=== PATIENT | male | born 1975 | race Caucasian/White ===

== ENCOUNTER 2018-11-05 12:43 | Emergency (ER) | payer SELFPAY ==
[2018-11-05 12:59] VITALS: BP 157/92
[2018-11-05] MEDS ORDERED: TORADOL IM ONE (14:15)
--- NOTE | 2018-11-05 14:18 | Emergency Department Report ---
ED General Adult HPI - General Chief complaint: Extremity Injury, Lower Stated complaint: KNEE PAIN/DIABETIC/HYPERTENSION Time Seen by Provider: 11/05/18 14:07 Source: patient Mode of arrival: Ambulatory Limitations: No Limitations - History of Present Illness Initial comments: Patient is 43 years old male with history of hypertension and diabetes. Patient is noncompliant with his medication due to insurance issues per patient report. Patient presented today complaining of bilateral knee pain. He stated that he is doing a lot of going up a stair and down at his work. Patient denied any fever, chills, nausea or vomiting. No chest pain or shortness of breath. No headache, neck pain, weakness numbness or tingling sensation. - Related Data Allergies Allergy/AdvReac Type Severity Reaction Status Date / Time No Known Allergies Allergy Unverified 11/05/18 12:51 ED Review of Systems ROS: Stated complaint: KNEE PAIN/DIABETIC/HYPERTENSION Other details as noted in HPI Comment: All other systems reviewed and negative Constitutional: denies: chills, fever Respiratory: denies: cough, orthopnea, shortness of breath, SOB with exertion, SOB at rest, wheezing Cardiovascular: denies: chest pain, palpitations Gastrointestinal: denies: abdominal pain, nausea, vomiting, diarrhea, constipation, hematemesis, melena, hematochezia Musculoskeletal: arthralgia. 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 Absent: tenderness, meningismus, lymphadenopathy, thyromegaly - Respiratory Respiratory exam: Present: normal lung sounds bilaterally - Cardiovascular Cardiovascular Exam: Present: regular rate, normal rhythm, normal heart sounds - GI/Abdominal GI/Abdominal exam: Present: soft, normal bowel sounds. Absent: distended, tenderness, guarding, rebound, rigid, organomegaly, mass, bruit, pulsatile mass, hernia - Extremities Exam Extremities exam: Present: normal inspection, full ROM, normal capillary refill. Absent: pedal edema, calf tenderness - Back Exam Back exam: Present: normal inspection, full ROM. Absent: tenderness, CVA tenderness (R), CVA tenderness (L), muscle spasm, paraspinal tenderness, vertebral tenderness - Neurological Exam Neurological exam: Present: alert, oriented X3, CN II-XII intact, normal gait, reflexes normal - Skin Skin exam: Present: warm, intact, normal color ED Course Vital Signs 11/05/18 11/05/18 11/05/18 12:51 14:15 14:23 Temperature 98.5 F Pulse Rate 61 Respiratory 16 16 16 Rate Blood Pressure 157/92 O2 Sat by Pulse 97 Oximetry ED Medical Decision Making - Lab Data Result diagrams: 11/05/18 14:31 11/05/18 14:31 - Radiology Data Radiology results: report reviewed Referring Physician: JUAREZ BENSON Patient Name: MARTHA ROMERO Date of : 1975 Sex: Male Report Date: 2018-11-05 Report Status: [place] [address] XRay Report Signed Patient: MARTHA ROMERO MR#: [id number] : 1975 Acct:[id number] Age/Sex: 43 / M ADM Date: 11/05/18 Loc: ED Attending Dr: Ordering Physician: JUAREZ BENSON Date of Service: 11/05/18 Procedure(s): XR knee BILAT 3V Accession Number(s): [id number] cc: JUAREZ BENOSN Fluoro Time In Minutes: BILATERAL KNEE RADIOGRAPHS INDICATION: Knee pain and injury. COMPARISON: None similar at this institution. FINDINGS: AP, lateral and oblique bilateral knee radiographs demonstrate intact articulation. Mild medial compartment narrowing suspected bilaterally. Degenerative spurring also involves the medial corners, tibial spines as also the superior and inferior patellar poles. No suprapatellar effusion. CONCLUSION: No acute radiographic abnormality with bilateral knee osteoarthritic changes noted, as described. Thank you for the opportunity to participate in this patient's care. Transcribed By: RS Dictated By: JOVANNI THEODORE MD Electronically Authenticated By: JOVANNI THEODORE MD Signed Date/Time: 11/05/181449 DD/ 1448 TD/TT: 11/05/18 1450 Critical care attestation.: If time is entered above; I have spent that time in minutes in the direct care of this critically ill patient, excluding procedure time. ED Disposition Clinical Impression: Bilateral knee pain, Osteoarthritis, Hypertension, Diabetes mellitus Disposition: TO HOME OR SELFCARE Is pt being admited?: No Condition: Stable Instructions: Hypertension (ED), Diabetes Mellitus Type 2 in Adults (ED), Osteoarthritis (ED) Referrals: TIMOTHY BASSETT MD [Primary Care Provider] - 3-5 Days
[2018-11-05 14:52] LABS: Basophils # (Auto) 0.1 K/mm3 (0.0-0.1); Eosinophils # (Auto) 0.2 K/mm3 (0.0-0.4); Eosinophils % (Auto) 2.9 % (0.0-4.3); Hematocrit 45.9 % (35.5-45.6); Hemoglobin 15.2 gm/dl (11.8-15.2); Lymphocytes # (Auto) 2.4 K/mm3 (1.2-5.4); Lymphocytes % (Auto) 31.9 % (13.4-35.0); Mean Corpuscular HGB Conc 33 % (32-34); Mean Corpuscular Volume 87 fl (84-94); Monocytes # (Auto) 0.5 K/mm3 (0.0-0.8); Platelet Count 282 K/mm3 (140-440); Red Blood Count 5.31 M/mm3 (3.65-5.03); Red Cell Distribution Width 13.8 % (13.2-15.2)
--- NOTE | 2018-11-05 14:54 | XRay Report ---
BILATERAL KNEE RADIOGRAPHS INDICATION: Knee pain and injury. COMPARISON: None similar at this institution. FINDINGS: AP, lateral and oblique bilateral knee radiographs demonstrate intact articulation. Mild medial compartment narrowing suspected bilaterally. Degenerative spurring also involves the medial corners, tibial spines as also the superior and inferior patellar poles. No suprapatellar effusion. CONCLUSION: No acute radiographic abnormality with bilateral knee osteoarthritic changes noted, as described. Thank you for the opportunity to participate in this patient's care.
[2018-11-05 15:19] LABS: Alanine Aminotransferase 28 units/L (7-56); Albumin 4.4 g/dL (3.9-5); BUN/Creatinine Ratio 23; Blood Urea Nitrogen 16 mg/dL (9-20); Calcium 8.9 mg/dL (8.4-10.2); Hemolysis Index 5
== END 2018-11-05 15:52 | disposition home or self-care (01) ==
LOC: MERGE 12:43 → ED 12:43
DX: M17.0 Bilateral primary osteoarthritis of knee (principal); I10 Essential (primary) hypertension; E11.9 Type 2 diabetes mellitus without complications
CPT/HCPCS: 36415; 73562; 80053; 82962; 85025; 96372; 99284; J1885

== ENCOUNTER 2019-03-15 12:58 | Emergency (ER) | payer OTHER ==
--- NOTE | 2019-03-15 13:43 | Event Note ---
ED Screening Note ED Screening Note: pt states he has had a CONCEPCION for a week states he gets HAs states he has had increased stress has been taking tylneol without much relief PMHx of HTN- states was taken off by doctor, DM no vision changes This initial assessment/diagnostic orders/clinical plan/treatment(s) is/are subject to change based on patients health status, clinical progression and re- assessment by fellow clinical providers in the ED. Further treatment and workup at subsequent clinical providers discretion. Patient/guardian urged not to elope from the ED as their condition may be serious if not clinically assessed and managed.
[2019-03-15] MEDS ORDERED: ULTRAM PO ONE (14:40)
[2019-03-15] MEDS ORDERED: IBUPROFEN PO ONE (14:40)
--- NOTE | 2019-03-15 14:49 | Emergency Department Report ---
ED Headache HPI - General Chief Complaint: Headache Stated Complaint: (L) ARM PIT STIFF/PAIN/HEADACHES Time Seen by Provider: 03/15/19 13:42 - History of Present Illness Initial Comments: Patient is a 43-year-old male who is presenting with headache. Patient states he's had headaches off and on for the last week. States is worse when he is stressed. Patient states is a bandlike sensation frontal region and radiates to the top of the head. 4 out of 10 in severity. Patient denies any photophobia or neck stiffness or throat cough cold congestion fevers or chills. Patient also states that last years has some tenderness in the left axilla with area of swelling underneath the skin Allergies/Adverse Reactions: Allergies No Known Allergies Allergy (Unverified 03/15/19 13:04) Home Medications: Ambulatory Orders ALPRAZolam [Xanax TAB] 0.25 mg PO BID PRN #6 tab 03/15/19 Ketorolac [Toradol] 10 mg PO Q6H PRN #12 tablet 03/15/19 traMADol [Ultram] 50 mg PO Q6HR PRN #12 tablet 03/15/19 ED Review of Systems ROS: Stated complaint: (L) ARM PIT STIFF/PAIN/HEADACHES Other details as noted in HPI Comment: All other systems reviewed and negative ED Past Medical Hx - Past Medical History Hx Hypertension: Yes Hx Diabetes: Yes Additional medical history: "heart condition" - Surgical History Past Surgical History?: No - Social History Smoking Status: Former Smoker Substance Use Type: None - Medications Home Medications: Home Medications Medication Instructions Recorded Confirmed Last Taken Type ALPRAZolam [Xanax TAB] 0.25 mg PO BID PRN #6 tab 03/15/19 Unknown Rx Ketorolac [Toradol] 10 mg PO Q6H PRN #12 tablet 03/15/19 Unknown Rx traMADol [Ultram] 50 mg PO Q6HR PRN #12 tablet 03/15/19 Unknown Rx ED Physical Exam - General Limitations: No Limitations General appearance: alert, in no apparent distress - Head Head exam: Present: atraumatic, normocephalic - Eye Eye exam: Present: normal appearance - ENT ENT exam: Present: mucous membranes moist - Neck Neck exam: Present: normal inspection - Respiratory Respiratory exam: Present: normal lung sounds bilaterally. Absent: respiratory distress, wheezes, rales - Cardiovascular Cardiovascular Exam: Present: regular rate, normal rhythm. Absent: systolic murmur, diastolic murmur, rubs, gallop - GI/Abdominal GI/Abdominal exam: Present: soft, normal bowel sounds. Absent: distended, tenderness, guarding - Rectal Rectal exam: Present: deferred - Extremities Exam Extremities exam: Present: normal inspection - Back Exam Back exam: Present: normal inspection - Neurological Exam Neurological exam: Present: alert, oriented X3 - Psychiatric Psychiatric exam: Present: normal affect, normal mood - Skin Skin exam: Present: warm, dry, intact, normal color, other (in the left exiting the patient scan appears normal there is no erythema or induration. With pa lpation I am able to appreciate a masslike lesion is approximately a centimeter in size skin). Absent: rash ED Course Vital Signs 03/15/19 13:37 Temperature 98.4 F Pulse Rate 58 L Respiratory 20 Rate Blood Pressure 163/91 O2 Sat by Pulse 97 Oximetry ED Medical Decision Making - Medical Decision Making Patient likely with tension headache. Patient given meds for symptomatic relief for stress. Patient also has a mass in the left axilla. Patient be referred to Dr. Xiong for possible biopsy. Critical care attestation.: If time is entered above; I have spent that time in minutes in the direct care of this critically ill patient, excluding procedure time. ED Disposition Clinical Impression: Tension headache, Breast mass in male Disposition: - TO HOME OR SELFCARE Is pt being admited?: No Does the pt Need Aspirin: No Condition: Stable Instructions: Tension Headache (ED), Breast Mass (ED) Referrals: CATHRYN XIONG MD [Staff Physician] - 3-5 Days [place] MEKA DIXON MD [Primary Care Provider] - 3-5 Days Time of Disposition: 14:51
[2019-03-15 15:59] VITALS: BP 130/85
== END 2019-03-15 15:00 | disposition home or self-care (01) ==
LOC: ED 12:58
DX: G44.209 Tension-type headache, unspecified, not intractable (principal); N63.0 Unspecified lump in unspecified breast; I10 Essential (primary) hypertension; E11.9 Type 2 diabetes mellitus without complications; Z87.891 Personal history of nicotine dependence
CPT/HCPCS: 99282

== ENCOUNTER 2019-07-09 15:29 | Emergency (ER) | payer SELFPAY ==
[2019-07-09 16:21] VITALS: BP 164/101
--- NOTE | 2019-07-09 16:30 | Emergency Department Report ---
Chief Complaint: Medical Clearance Stated Complaint: HYPERTENSION/MED REFILL DIABETIC Time Seen by Provider: 07/09/19 16:20 - HPI History of Present Illness: 44 y o male presents with a PMH of HTN and DM states he ran out of his medication and wants a refill.. Patient states he takes metformin and lisinopril/hydrochlorothiazide daily. He denies any symptoms today. He denies fevers/chills/nausea vomiting/abdominal pain/chest pain/shortness of breath/dizziness or headache. Patient is unable to follow up with his primary care physician at this time is to affect his insurance does not kick in until October next year - ROS Review of Systems: His noted in HPI - Exam Vital Signs: Vital Signs 07/09/19 16:18 Temperature 98.1 F Pulse Rate 58 L Respiratory 16 Rate Blood Pressure 164/101 [Left] O2 Sat by Pulse 97 Oximetry Physical Exam: General: Alert and oriented 3. Patient is in no acute distress, ambulatory Chest: Regular rate and rhythm, CT, MSE screening note: Focused history and physical exam performed. Due to findings the following was ordered: ED Medical Decision Making - Medical Decision Making 44-year-old male presents with medication refill. Vital signs are normal patient is in no acute distress. Discussed with the patient follow up with primary care physician. ED Disposition for MSE Clinical Impression: Medication refill Disposition: DC-01 TO HOME OR SELFCARE Is pt being admited?: No Does the pt Need Aspirin: No Condition: Stable Instructions: Diabetes Mellitus Type 2 in Adults (ED), Hypertension (ED) Additional Instructions: Follow up with your pcp fill your prescription today and start taking Prescriptions: metFORMIN [Glucophage] 500 mg PO BID #60 tablet Lisinopril/Hydrochlorothiazide [Zestoretic 20-25 mg] 1 tab PO QDAY #60 tab Referrals: [facility] [place] [Outside] - 3-5 Days [facility] [Outside] - 3-5 Days [facility] [Outside] - 3-5 Days Forms: Work/School Release Form(ED) Time of Disposition: 16:41
== END 2019-07-09 17:00 | disposition home or self-care (01) ==
LOC: ED 15:29
DX: I10 Essential (primary) hypertension (principal); E11.9 Type 2 diabetes mellitus without complications; Z76.0 Encounter for issue of repeat prescription
CPT/HCPCS: 82962

== ENCOUNTER 2019-10-04 19:11 | Emergency (ER) | payer SELFPAY | END 2019-10-04 20:05 | disposition left against medical advice (07) | LOC: ED 19:11 | DX: R03.0 Elevated blood-pressure reading, without diagnosis of hypertension (principal); Z53.21 Procedure and treatment not carried out due to patient leaving prior to being seen by health care provider ==

== ENCOUNTER 2019-12-15 08:38 | Emergency (ER) | payer SELFPAY ==
[2019-12-15 09:22] VITALS: BP 153/100
[2019-12-15] MEDS ORDERED: KETOROLAC 60 MG/2 ML INJ IM ONE (12:22)
--- NOTE | 2019-12-15 12:54 | XRay Report ---
RIGHT SHOULDER 3 VIEWS INDICATION / CLINICAL INFORMATION: Right shoulder pain. COMPARISON: None available. FINDINGS: BONES / JOINT(S): There are mild degenerative changes involving the greater tuberosity of the humerus . There is no evidence of fracture, dislocation or destructive lesion. SOFT TISSUES: No significant abnormality. ADDITIONAL FINDINGS: The visualized right lung is clear. Signer Name: Henrry Sarah MD Signed: 12/15/2019 12:50 PM Workstation Name: [id number]
--- NOTE | 2019-12-15 13:30 | Emergency Department Report ---
ED Upper Extremity Inj HPI - General Chief Complaint: Extremity Injury, Upper Stated Complaint: RT SHOULDER PAIN/CANT SLEEP Time Seen by Provider: 12/15/19 12:21 Source: patient Mode of arrival: Ambulatory Limitations: No Limitations - History of Present Illness Initial Comments: This is a 44-year-old male nontoxic, well nourished in appearance, no acute signs of distress presents to the ED with c/o of right shoulder pain 1 week. 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 Patient stated that pain radiates to right upper extremity. Patient denies any injuries or trauma. Patient denies any numbness, tingling, fever, chills, nausea, vomiting, chest pain, shortness of breath, head ache, stiff neck. Patient denies any joint swelling or joint redness. Patient denies decreased range of motion. Patient denies any allergies. PMH includes HTN and DM but has been out of his medications but is requesting for his medications refill. MD Complaint: Injury to:: right, shoulder -: week(s) Other Extremity Injury: Shoulder: Right Other Injuries: none Place: work Severity scale (0 -10): 8 Improves With: immobilization Worsens With: movement of extremity Associated Symptoms: denies other symptoms. denies: weakness, numbness, neck pain, suspects foreign body, nausea/vomiting, heard/felt popping sensat - Related Data Previous Rx's Medication Instructions Recorded Last Taken Type Naproxen [Naprosyn] 500 mg PO BID #14 tablet 11/05/18 Unknown Rx ALPRAZolam [Xanax TAB] 0.25 mg PO BID PRN #6 tab 03/15/19 Unknown Rx Ketorolac [Toradol] 10 mg PO Q6H PRN #12 tablet 03/15/19 Unknown Rx traMADoL [Ultram] 50 mg PO Q6HR PRN #12 tablet 03/15/19 Unknown Rx Lisinopril/Hydrochlorothiazide 1 tab PO QDAY #60 tab 07/09/19 Unknown Rx [Zestoretic 20-25 mg] metFORMIN [Glucophage] 500 mg PO BID #60 tablet 07/09/19 Unknown Rx hydroCHLOROthiazide [Hctz] 12.5 mg PO QDAY #30 capsule 12/15/19 Unknown Rx metFORMIN [Glucophage] 500 mg PO BID #60 tablet 12/15/19 Unknown Rx Allergies Allergy/AdvReac Type Severity Reaction Status Date / Time No Known Allergies Allergy Unverified 03/18/19 08:05 ED Review of Systems ROS: Stated complaint: RT SHOULDER PAIN/CANT SLEEP Other details as noted in HPI Constitutional: denies: chills, fever Eyes: denies: eye pain, eye discharge, vision change ENT: denies: ear pain, throat pain Respiratory: denies: cough, shortness of breath, wheezing Cardiovascular: denies: chest pain, palpitations Endocrine: no symptoms reported Gastrointestinal: denies: abdominal pain, nausea, diarrhea Genitourinary: denies: urgency, dysuria Musculoskeletal: denies: back pain, joint swelling, arthralgia Skin: denies: rash, lesions Neurological: denies: headache, weakness, paresthesias Psychiatric: denies: anxiety, depression Hematological/Lymphatic: denies: easy bleeding, easy bruising ED Past Medical Hx - Past Medical History Previous Medical History?: Yes Hx Hypertension: Yes Hx Diabetes: Yes Additional medical history: "heart condition"- dilated arteries - Surgical History Past Surgical History?: No - Social History Smoking Status: Never Smoker Substance Use Type: None - Medications Home Medications: Home Medications Medication Instructions Recorded Confirmed Last Taken Type Naproxen [Naprosyn] 500 mg PO BID #14 tablet 11/05/18 Unknown Rx ALPRAZolam [Xanax TAB] 0.25 mg PO BID PRN #6 tab 03/15/19 Unknown Rx Ketorolac [Toradol] 10 mg PO Q6H PRN #12 tablet 03/15/19 Unknown Rx traMADoL [Ultram] 50 mg PO Q6HR PRN #12 tablet 03/15/19 Unknown Rx Lisinopril/Hydrochlorothiazide 1 tab PO QDAY #60 tab 07/09/19 Unknown Rx [Zestoretic 20-25 mg] metFORMIN [Glucophage] 500 mg PO BID #60 tablet 07/09/19 Unknown Rx hydroCHLOROthiazide [Hctz] 12.5 mg PO QDAY #30 capsule 12/15/19 Unknown Rx metFORMIN [Glucophage] 500 mg PO BID #60 tablet 12/15/19 Unknown Rx ED Physical Exam - General Limitations: No Limitations General appearance: alert, in no apparent distress - Head Head exam: Present: atraumatic, normocephalic - Neck Neck exam: Present: normal inspection, full ROM. Absent: tenderness, meningismus, lymphadenopathy - Extremities Exam Extremities exam: Present: normal inspection, full ROM, tenderness, normal capillary refill. Absent: joint swelling - Expanded Upper Extremity Exam Right General: Present: normal inspection Shoulder Exam: Present: normal inspection, full ROM, tenderness. Absent: swelling, abrasion, laceration, ecchymosis, deformity, crepidus, dislocation, erythema, tenderness over AC joint Upper Arm exam: Present: normal inspection, full ROM. Absent: tenderness, swelling Elbow exam: Present: normal inspection, full ROM. Absent: tenderness, swelling Forearm Wrist exam: Present: normal inspection, full ROM. Absent: tenderness, swelling Hand Wrist exam: Present: normal inspection, full ROM. Absent: tenderness, swelling Vascular: Present: vascular compromise, normal capillary refill - Back Exam Back exam: Present: normal inspection, full ROM. Absent: tenderness, CVA tenderness (R), CVA tenderness (L), muscle spasm, paraspinal tenderness, vertebral tenderness, rash noted - Neurological Exam Neurological exam: Present: alert, oriented X3, normal gait - Psychiatric Psychiatric exam: Present: normal affect, normal mood - Skin Skin exam: Present: warm, dry, intact, normal color. Absent: rash ED Course Vital Signs 12/15/19 12/15/19 09:15 12:50 Temperature 97.7 F Pulse Rate 59 L Respiratory 16 18 Rate Blood Pressure 153/100 O2 Sat by Pulse 97 Oximetry - Reevaluation(s) Reevaluation #1: 12/15/19 13:29 Patient is speaking in full sentences with no signs of distress noted. ED Medical Decision Making - Medical Decision Making This is a 44-year-old male that presents with right shoulder strain. Patient is stable and was examined by me. I referred patient to an orthopedic doctor for further evaluation for possible MRI. X-ray has been obtained and dictated by the radiologist. Patient is notified of the x-ray report with noted by the patient. Patient does have normal gait with no tenderness and no joint swelling. No ecchymosis. no joint redness or swelling. Not warm to touch. No signs of cellulites present. Patient was instructed to RICE therapy. Patient received treatment for pain which he stated symptoms has improved and subsided. Patient is discharged with Naproxen and his medication refills. At time of discharge, the patient does not seem toxic or ill in appearance. No acute signs of distress noted. Patient agrees to discharge treatment plan of care. No further questions noted by the patient. Critical care attestation.: If time is entered above; I have spent that time in minutes in the direct care of this critically ill patient, excluding procedure time. ED Disposition Clinical Impression: Medication refill Right shoulder strain Qualifiers: Encounter type: initial encounter Qualified Code(s): S46.911A - Strain of unspecified muscle, fascia and tendon at shoulder and upper arm level, right arm, initial encounter Disposition: TO HOME OR SELFCARE Is pt being admited?: No Does the pt Need Aspirin: No Condition: Stable Instructions: Rotator Cuff Injury (ED), RICE Therapy (ED) Additional Instructions: Follow-up with a orthopedic doctor in 3-5 days or if symptoms worsen and continue return to emergency room as soon as possible. Prescriptions: metFORMIN [Glucophage] 500 mg PO BID #60 tablet hydroCHLOROthiazide [Hctz] 12.5 mg PO QDAY #30 capsule Referrals: PRIMARY MD KIET [Primary Care Provider] - 3-5 Days JOHANN SANDERS MD [Staff Physician] - 3-5 Days ALEX NEWMAN MD [Staff Physician] - 3-5 Days Forms: Work/School Release Form(ED)
== END 2019-12-15 13:46 | disposition home or self-care (01) ==
LOC: ED 08:38
DX: S46.911A Strain of unspecified muscle, fascia and tendon at shoulder and upper arm level, right arm, initial encounter (principal); I10 Essential (primary) hypertension; E11.9 Type 2 diabetes mellitus without complications; Z76.0 Encounter for issue of repeat prescription; Z79.899 Other long term (current) drug therapy; X58.XXXA Exposure to other specified factors, initial encounter; Y93.89 Activity, other specified; Y92.89 Other specified places as the place of occurrence of the external cause; Y99.8 Other external cause status
CPT/HCPCS: 73030; 82962; 96372; 99283; J1885

== ENCOUNTER 2022-02-24 14:25 | Emergency (ER) | payer SELFPAY ==
[2022-02-24 14:47] VITALS: BP 123/96
[2022-02-24 15:47] LABS: Basophils # (Auto) 0.1 K/mm3 (0.0-0.1); Basophils % (Auto) 0.8 % (0.0-1.8); Eosinophils # (Auto) 0.1 K/mm3 (0.0-0.4); Eosinophils % (Auto) 1.7 % (0.0-4.3); Hematocrit 50.6 % (35.5-45.6); Hemoglobin 16.8 gm/dl (11.8-15.2); Lymphocytes # (Auto) 2.2 K/mm3 (1.2-5.4); Lymphocytes % (Auto) 27.3 % (13.4-35.0); Mean Corpuscular HGB Conc 33 % (32-34); Mean Corpuscular Volume 86 fl (84-94); Monocytes # (Auto) 0.6 K/mm3 (0.0-0.8); Monocytes % (Auto) 7.5 % (0.0-7.3); Platelet Count 295 K/mm3 (140-440); Red Blood Count 5.88 M/mm3 (3.65-5.03); Red Cell Distribution Width 13.5 % (13.2-15.2)
[2022-02-24 15:57] LABS: Blood Urea Nitrogen 15 mg/dL (9-20); Calcium 9.9 mg/dL (8.4-10.2); Hemolysis Index 16
[2022-02-24 16:02] LABS: BUN/Creatinine Ratio 21
== END 2022-02-24 17:24 | disposition left against medical advice (07) ==
LOC: ED 14:25
DX: R35.0 Frequency of micturition (principal); Z53.21 Procedure and treatment not carried out due to patient leaving prior to being seen by health care provider
CPT/HCPCS: 36415; 80048; 85025

== ENCOUNTER 2022-03-17 20:42 | Emergency (ER) | payer SELFPAY ==
[2022-03-17 21:13] VITALS: BP 162/101
[2022-03-18 00:47] LABS: Basophils # (Auto) 0.1 K/mm3 (0.0-0.1); Eosinophils # (Auto) 0.2 K/mm3 (0.0-0.4); Eosinophils % (Auto) 1.7 % (0.0-4.3); Hematocrit 46.9 % (35.5-45.6); Hemoglobin 16.1 gm/dl (11.8-15.2); Lymphocytes # (Auto) 3.2 K/mm3 (1.2-5.4); Lymphocytes % (Auto) 36.3 % (13.4-35.0); Mean Corpuscular HGB Conc 34 % (32-34); Mean Corpuscular Volume 86 fl (84-94); Monocytes # (Auto) 0.6 K/mm3 (0.0-0.8); Monocytes % (Auto) 6.7 % (0.0-7.3); Platelet Count 287 K/mm3 (140-440); Red Blood Count 5.45 M/mm3 (3.65-5.03); Red Cell Distribution Width 13.3 % (13.2-15.2)
[2022-03-18 01:07] LABS: Alanine Aminotransferase 21 units/L (7-56); Albumin 4.8 g/dL (3.9-5); Blood Urea Nitrogen 12 mg/dL (9-20); Calcium 9.3 mg/dL (8.4-10.2); Hemolysis Index 14
[2022-03-18 01:09] LABS: BUN/Creatinine Ratio 17
[2022-03-18] MEDS ORDERED: SODIUM CHLORIDE 0.9% 1000 ML 1,000 ML IV ONE (02:04)
--- NOTE | 2022-03-18 03:21 | Emergency Department Report ---
ED General Adult HPI - General Chief complaint: Dizziness Stated complaint: DIZZY,AB PAIN Time Seen by Provider: 03/18/22 02:04 Source: patient Mode of arrival: Ambulatory Limitations: No Limitations - History of Present Illness Initial comments: Patient 46-year-old male history of hypertension and diabetes type 2 who presents for abdominal pain left left upper quadrant with dizziness x3 days. Patient denies fevers or chills no nausea or vomiting no shortness shortness of breath or chest pain. Symptoms exacerbated by movement and stretching. Sympt oms are relieved by nothing tried. He denies hematuria or melena. Last bowel movement today normal. Last p.o. intake today normal. No fever no chills. - Related Data Previous Rx's Medication Instructions Recorded Last Taken Type ALPRAZolam [Xanax TAB] 0.25 mg PO BID PRN #6 tab 03/15/19 Unknown Rx hydroCHLOROthiazide [Hctz] 12.5 mg PO QDAY #30 capsule 12/15/19 Unknown Rx Ibuprofen [Motrin 800 MG tab] 800 mg PO TID #30 tablet 04/28/20 Unknown Rx cephALEXin [Keflex] 500 mg PO BID #10 capsule 04/28/20 Unknown Rx Lisinopril/Hydrochlorothiazide 1 tab PO QDAY #60 tab 03/18/22 Unknown Rx [Zestoretic 20-25 mg] metFORMIN [Glucophage] 500 mg PO BID #60 tablet 03/18/22 Unknown Rx Allergies Allergy/AdvReac Type Severity Reaction Status Date / Time No Known Allergies Allergy Unverified 03/18/19 08:05 ED Review of Systems ROS: Stated complaint: DIZZY,AB PAIN Other details as noted in HPI Constitutional: denies: chills, fever Eyes: denies: eye pain, eye discharge, vision change ENT: denies: ear pain, throat pain Respiratory: denies: cough, shortness of breath, wheezing Cardiovascular: denies: chest pain, palpitations Endocrine: no symptoms reported, see HPI Gastrointestinal: denies: abdominal pain, nausea, vomiting, diarrhea Genitourinary: denies: urgency, dysuria Musculoskeletal: denies: back pain, joint swelling, arthralgia Skin: denies: rash, lesions Neurological: vertigo. denies: headache, weakness, paresthesias Psychiatric: denies: anxiety, depression Hematological/Lymphatic: denies: easy bleeding, easy bruising ED Past Medical Hx - Past Medical History Hx Hypertension: Yes Hx Diabetes: Yes Additional medical history: "heart condition"- dilated arteries - Social History Smoking Status: Never Smoker - Medications Home Medications: Home Medications Medication Instructions Recorded Confirmed Last Taken Type ALPRAZolam [Xanax TAB] 0.25 mg PO BID PRN #6 tab 03/15/19 Unknown Rx hydroCHLOROthiazide [Hctz] 12.5 mg PO QDAY #30 capsule 12/15/19 Unknown Rx Ibuprofen [Motrin 800 MG tab] 800 mg PO TID #30 tablet 04/28/20 Unknown Rx cephALEXin [Keflex] 500 mg PO BID #10 capsule 04/28/20 Unknown Rx Lisinopril/Hydrochlorothiazide 1 tab PO QDAY #60 tab 03/18/22 Unknown Rx [Zestoretic 20-25 mg] metFORMIN [Glucophage] 500 mg PO BID #60 tablet 03/18/22 Unknown Rx ED Physical Exam - General Limitations: No Limitations General appearance: alert, in no apparent distress - Head Head exam: Present: normocephalic, normal inspection - Eye Eye exam: Present: PERRL, EOMI Pupils: Present: normal accommodation - ENT ENT exam: Present: mucous membranes moist - Neck Neck exam: Present: normal inspection, full ROM. Absent: tenderness, lymphadenopathy - Respiratory Respiratory exam: Present: normal lung sounds bilaterally. Absent: respiratory distress, wheezes, chest wall tenderness - Cardiovascular Cardiovascular Exam: Present: regular rate, normal rhythm, normal heart sounds. Absent: systolic murmur, diastolic murmur, rubs, gallop - GI/Abdominal GI/Abdominal exam: Present: soft, normal bowel sounds. Absent: distended, tenderness, guarding, rebound, rigid, bruit, hernia - Rectal Rectal exam: Present: deferred - exam: Present: other - Extremities Exam Extremities exam: Present: normal inspection, full ROM (Deferred), normal capillary refill. Absent: tenderness - Back Exam Back exam: Present: normal inspection, full ROM. Absent: tenderness, CVA tenderness (R), CVA tenderness (L) - Neurological Exam Neurological exam: Present: alert, oriented X3, CN II-XII intact, normal gait, motor sensory deficit, reflexes normal - Expanded Neurological Exam Expanded Patient oriented to: Present: person, place, time Speech: Present: fluid speech Motor strength exam: RUE: 5, LUE: 5, RLE: 5, LLE: 5 Best Eye Response (Salma): (4) open spontaneously Best Motor Response (Edmond): (6) obeys commands Best Verbal Response (Edmond): (5) oriented Edmond Total: 15 - Psychiatric Psychiatric exam: Present: normal affect, normal mood - Skin Skin exam: Present: warm, dry, intact, normal color. Absent: rash ED Course Vital Signs 03/17/22 21:11 Temperature 98.1 F Pulse Rate 73 Respiratory 16 Rate Blood Pressure 162/101 O2 Sat by Pulse 96 Oximetry ED Medical Decision Making - Lab Data Result diagrams: 03/18/22 00:19 03/18/22 00:19 Labs 03/18/22 03/18/22 03/18/22 00:19 00:19 02:22 WBC 8.8 RBC 5.45 H Hgb 16.1 H Hct 46.9 H MCV 86 MCH 30 MCHC 34 RDW 13.3 Plt Count 287 Lymph % (Auto) 36.3 H [place] % (Auto) 6.7 Eos % (Auto) 1.7 Baso % (Auto) 1.0 Lymph # (Auto) 3.2 [place] # (Auto) 0.6 Eos # (Auto) 0.2 Baso # (Auto) 0.1 Seg Neutrophils % 54.3 Seg Neutrophils # 4.8 Sodium 136 L Potassium 5.0 Chloride 100.0 Carbon Dioxide 24 Anion Gap 17 BUN 12 Creatinine 0.7 L Estimated GFR > 60 BUN/Creatinine Ratio 17 Glucose 295 H Calcium 9.3 Total Bilirubin 0.60 AST 15 ALT 21 Alkaline Phosphatase 102 Troponin T < 0.010 Total Protein 7.1 Albumin 4.8 Albumin/Globulin Ratio 2.1 - EKG Data EKG shows normal: sinus rhythm, axis, intervals, QRS complexes, ST-T waves Rate: normal - EKG Data When compared to previous EKG there are: previous EKG unavailable Interpretation: normal EKG (EKG normal sinus rhythm no ST elevated AK interpret ed by ED attending) - Radiology Data Radiology results: report reviewed, image reviewed CHEST 2 VIEWS INDICATION / CLINICAL INFORMATION: dizziness. COMPARISON: 03/31/2020 FINDINGS: SUPPORT DEVICES: None. HEART / MEDIASTINUM: No significant abnormality. LUNGS / PLEURA: No significant pulmonary or pleural abnormality. No pneumothorax. ADDITIONAL FINDINGS: No significant additional findings. IMPRESSION: 1. No acute findings. Signer Name: Efrem Allred MD Signed: 03/18/2022 3:39 AM Workstation Name: [id number] Transcribed By: TL Dictated By: Efrem Allred MD Electronically Authenticated By: Efrem Allred MD Signed Date/Time: 03/18/22338 DD/ 7 TD/TT: - Medical Decision Making Patient 46-year-old male history of hypertension and diabetes type 2 who presents for abdominal pain left left upper quadrant with dizziness x3 days. Patient denies fevers or chills no nausea or vomiting no shortness shortness of breath or chest pain. Symptoms exacerbated by movement and stretching. Symptoms are relieved by nothing tried. He denies hematuria or melena. Last bowel movement today normal. Last p.o. intake today normal. No fever no chills. Dizziness is resolved with medications given in ED. Patient is currently alert oriented x3 amatory with steady gait has ambulated from room to bathroom and returned to room without symptoms. No nausea no vomiting, no shortness of breath no chest pain. No fever or chills. Plan DC home, hydrate as directed. Follow-up with primary care doctor as scheduled. Will refill medications including metformin, take blood pressure medicine as scheduled by your primary care doctor. Patient verbalized agreement and understanding of discharge plan. Patient DC'd home in stable condition at this time. Critical care attestation.: If time is entered above; I have spent that time in minutes in the direct care of this critically ill patient, excluding procedure time. ED Disposition Clinical Impression: Vertigo Disposition: 01 HOME / SELF CARE / HOMELESS Is pt being admited?: No Does the pt Need Aspirin: No Condition: Stable Instructions: Dizziness Additional Instructions: Take medications as prescribed. Follow-up follow-up with your doctor in 2 to 3 days. Return to emergency department should symptoms worsen. Prescriptions: metFORMIN [Glucophage] 500 mg PO BID #60 tablet Lisinopril/Hydrochlorothiazide [Zestoretic 20-25 mg] 1 tab PO QDAY #60 tab Referrals: JOHANN SANDERS MD [Primary Care Provider] - 3-5 Days Forms: Work/School Release Form(ED) Time of Disposition: 04:40
--- NOTE | 2022-03-18 03:43 | XRay Report ---
CHEST 2 VIEWS INDICATION / CLINICAL INFORMATION: dizziness. COMPARISON: 03/31/2020 FINDINGS: SUPPORT DEVICES: None. HEART / MEDIASTINUM: No significant abnormality. LUNGS / PLEURA: No significant pulmonary or pleural abnormality. No pneumothorax. ADDITIONAL FINDINGS: No significant additional findings. IMPRESSION: 1. No acute findings. Signer Name: Efrem Allred MD Signed: 03/18/2022 3:39 AM Workstation Name: [id number]
--- NOTE | 2022-03-18 13:31 | Electrocardiograph Report ---
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
== END 2022-03-18 04:57 | disposition home or self-care (01) ==
LOC: ED 20:42
DX: R42 Dizziness and giddiness (principal); I10 Essential (primary) hypertension; E11.9 Type 2 diabetes mellitus without complications
CPT/HCPCS: 36415; 71046; 80053; 84484; 85025; 93005; 96360; 99284; J7030